=== PATIENT | female | born 1980 | race Hispanic/Latino ===

== ENCOUNTER 2018-08-21 08:39 | Observation (INO) | payer OTHER ==
[2018-08-16 09:46] LABS: Basophils % (Auto) 0.7 % (0.0-1.8); Eosinophils # (Auto) 0.1 K/mm3 (0.0-0.4); Eosinophils % (Auto) 1.5 % (0.0-4.3); Hematocrit 36.3 % (30.3-42.9); Hemoglobin 11.9 gm/dl (10.1-14.3); Lymphocytes # (Auto) 1.1 K/mm3 (1.2-5.4); Mean Corpuscular HGB Conc 33 % (30-34); Mean Corpuscular Volume 80 fl (79-97); Monocytes # (Auto) 0.5 K/mm3 (0.0-0.8); Monocytes % (Auto) 11.9 % (0.0-7.3); Red Blood Count 4.52 M/mm3 (3.65-5.03); Red Cell Distribution Width 13.9 % (13.2-15.2)
[2018-08-16 09:49] LABS: Platelet Count 227 K/mm3 (140-440)
[2018-08-16 11:18] LABS: BUN/Creatinine Ratio 20; Blood Urea Nitrogen 10 mg/dL (7-17); Calcium 9.2 mg/dL (8.4-10.2); Hemolysis Index 5
--- NOTE | 2018-08-16 11:26 | Anesthesia Consultation ---
Anesthesia Consult and Med Hx Date of service: 08/16/18 - Airway Anesthetic Teeth Evaluation: Good ROM Head & Neck: Adequate Mental/Hyoid Distance: Adequate Mallampati Class: Class II - Pulmonary Exam CTA: Yes - Cardiac Exam Cardiac Exam: RRR - Pre-Operative Health Status ASA Pre-Surgery Classification: ASA2 Proposed Anesthetic Plan: General - Pulmonary Hx Smoking: Yes (Former) - Central Nervous System Hx Psychiatric Problems: No - Hematic Hx Anemia: Yes - Other Systems Hx Cancer: Yes - Additional Comments Anesthesia Medical History Comments: 37 y.o.f. with newly diagnosed cerivcal cancer scheduled for robotic hysterecomy. No longer smokers. Prior obstetrics gyn surgery history and appendectomy - no problems with anesthesia. Discussed GETA +/- TAP block
[~2018-08-21 08:39] MED LIST: NEOSPORIN GU IR ONE; NEURONTIN PO NR; VERSED IV NR
[2018-08-21] MEDS ORDERED: ANCEF/STERILE WATER 2 GM/20 ML IV NR (09:15)
[2018-08-21] MEDS ORDERED: NEURONTIN PO NR (09:17)
--- NOTE | 2018-08-21 09:25 | History and Physical Report ---
History of Present Illness Date of examination: 08/21/18 Chief complaint: Squamous cell carcinoma of cervix History of present illness: Pt is a 37yo WF LMP 07/08/18 presents for surgical evaluation and treatment of squamous cell carcinoma of the cervix and endometrial biopsy shwed moderate to poorly diff. invasive carcinoma. She now presents for a Robotic Assisted Total Hysterectomy with ovarian conservation. Past History Past Medical History: other Past Surgical History: no surgical history [employer] History: abnormal PAP smear, cancer Social history: no significant social history, Medications and Allergies Allergies Allergy/AdvReac Type Severity Reaction Status Date / Time No Known Allergies Allergy Verified 08/16/18 12:45 Home Medications Medication Instructions Recorded Confirmed Last Taken Type Ferrous Sulfate [Iron] 325 mg PO TID 08/15/18 08/15/18 Unknown History Active Meds: Active Medications Cefazolin Sodium (Ancef/Sterile Water 2 Gm/20 Ml) 2 gm IV PREOP NR Stop: 08/21/18 23:59 Celecoxib (Celebrex) 200 mg PO PREOP NR Stop: 08/21/18 23:59 Fentanyl (Sublimaze) 50 mcg IV Q5MIN PRN PRN Reason: Pain , Severe (7-10) Gabapentin (Neurontin) 300 mg PO PREOP NR Stop: 08/21/18 23:59 Hydromorphone HCl (Dilaudid) 0.5 mg IV Q10MIN PRN PRN Reason: Pain , Severe (7-10) Review of Systems All systems: negative - Vital Signs Vital signs: Vital Signs Temp Pulse Resp BP Pulse Ox 98.4 F 64 18 97/59 99 08/15/18 10:20 08/15/18 10:20 08/15/18 10:20 08/15/18 10:20 08/15/18 10:20 Temp Pulse Resp BP Pulse Ox 98.4 F 64 18 97/59 99 08/15/18 10:20 08/15/18 10:20 08/15/18 10:20 08/15/18 10:20 08/15/18 10:20 - Physical Exam Breasts: Positive: deferred Cardiovascular: Regular rate Lungs: Positive: Clear to auscultation Abdomen: Positive: normal appearance Genitourinary (Female): Positive: normal external genitalia Cervix: Positive: lesion Uterus: Positive: normal size Extremities: Positive: normal Results Result Diagrams: 08/16/18 09:30 08/16/18 09:30 All other labs normal. Assessment and Plan - Patient Problems (1) Cervical carcinoma Onset Date: 08/21/18 Current Visit: Yes Status: Acute Plan to address problem: A: Squamous cell cervical carcinoma P: Admit for a Robotic Assisted Total Hysterectomy with Bilateral Salpingectomy
[2018-08-21] MEDS ORDERED: VERSED IV ONE (09:41)
[2018-08-21] MEDS ORDERED: MARCAINE-EPI 0.25%-1:200,000 INFILTRATI ONE (09:42)
[2018-08-21] MEDS ORDERED: LACTATED RINGERS 1,000 ML IV SCH (10:00)
[2018-08-21] MEDS ORDERED: ANCEF/STERILE WATER 2 GM/20 ML 2 GM/20 ML SYRINGE IV SCH (10:00)
[2018-08-21] MEDS: SUBLIMAZE IV PRN ×2 (10:13→10:18)
--- NOTE | 2018-08-21 11:05 | Anesthesia Day of Surgery ---
Anesthesia Day of Surgery - Day of Surgery Patient Examined: Yes Patient H&P Reviewed: Yes Patient is NPO: Yes
[2018-08-21] MEDS ORDERED: SUBLIMAZE ONE (11:22)
[2018-08-21] MEDS ORDERED: XYLOCAINE MPF 2% ONE (11:23)
[2018-08-21] MEDS ORDERED: ZEMURON IV ONE (11:23)
[2018-08-21] MEDS ORDERED: DIPRIVAN 10 MG/ML IV ONE (11:23)
[2018-08-21] MEDS ORDERED: DECADRON ONE (12:37)
[2018-08-21] MEDS ORDERED: NEOSPORIN GU IR ONE (12:45)
[2018-08-21] MEDS ORDERED: NACL 0.9% IR ONE ×2 (12:45)
--- NOTE | 2018-08-21 14:08 | Operative Report ---
Operative Report Operative Report: Date of procedure: 08/21/2018 Pre-operative diagnosis: Cervical carcinoma Post-operative diagnosis: Same Procedure name(s): 1. Robotic-assisted total hysterectomy 2. Bilateral salpingectomy Surgeon: Bethel Sanches MD Embedded Software Manager: Cassandra David CSA Anesthesia: RICHARD Block followed by general endotracheal intubation EBL: Less than 100 mL Findings: An 8-10 week size uterus with tubes showed evidence of previous tubal ligation bilaterally and normal ovaries bilaterally. Procedure: After the patient's first correctly identified she was prepped and draped in the usual sterile fashion and placed in the dorsolithotomy position. The bladder was first catheterized using Torres catheter and the speculum was placed in the vagina and the anterior lip of the cervix was grasped using a single-tooth tenaculum, and the medium Vesicare cup was placed. The tenaculum and speculum was then removed from the vagina and attention was then turned to the abdomen. The skin knife was used to make a small incision approximately 5 cm above the umbilicus through which a 12 mm trocar was placed under direct visualization. After adequate amount of abdominal insufflation visualization of the pelvic organs found the uterus to be enlarged and the tubes showed evidence of previous tubal ligation bilaterally and the ovaries are normal bilaterally. A right and left paramedian incision was made through which the 8 mm trochars were placed under direct visualization and a 5 mm trocar was placed in the right upper quadrant. The patient was then placed in steep Trendelenburg positioning and the robot was docked on the patient's left side. After all the robotic ports were connected and adequate functioning of the robotic arms were tested the surgeon then proceeded to the console to begin the hysterectomy. First the left round ligament was grasped, cauterized and cut, the left utero- ovarian ligaments were grasped, cauterized and cut, and the left fallopian tube also grasped, cauterized and cut along the mesosalpinx, thus freeing the left ovary from the left uterine sidewall. The same procedure was performed on the right. The right round ligament was grasped, cauterized and cut, the right utero-ovarian ligaments were grasped, cauterized and cut, and the right fallopian tube also grasped, cauterized and cut along the mesosalpinx, thus freeing the right ovary from the right uterine sidewall. The bladder flap was taken down anteriorly and the uterine vessels were grasped, cauterized and cut bilaterally. The cardinal ligaments were sequentially grasped, cauterized and cut down to the level of the uterosacral ligaments. At this time the posterior colpotomy was performed over the Vcare cup, and the cervix was circumscribed beginning posteriorly and meeting anteriorly until the cervix was freed. The cervix and uterus was then removed through the vagina and sent to pathology. The vaginal cuff was then closed using 2-0 Vloc suture in a running fashion. Irrigation was then performed and after good hemostasis was achieved the procedure was considered complete. The Tisseel sealant was then sprayed across the vaginal cuff site, and after excellent hemostasis was assured Interceed was placed across the vaginal cuff site. All instruments were then removed from the abdominal cavity. And each incision was closed using 0 Vicryl suture in a [id number] configuration on the fascia followed by 4-0 Monocryl suture in a subcuticular fashion on the skin. Each incision was also infiltrated using 0.5% Marcaine solution. The vaginal pack was removed. The patient tolerated the procedure well and was transported to the recovery room in stable condition.
[2018-08-21] MEDS: DILAUDID IV PRN ×2 (14:14→14:24)
[2018-08-21] MEDS ORDERED: MILK OF MAGNESIA PO PRN (17:10)
[2018-08-21] MEDS ORDERED: PHENERGAN PR PRN (17:10)
[2018-08-21] MEDS ORDERED: ZOFRAN IV PRN (17:10)
[2018-08-21] MEDS ORDERED: IBUPROFEN PO PRN (17:10)
--- NOTE | 2018-08-21 17:11 | Post Anesthesia Evaluation ---
- Post Anesthesia Evaluation Patient Participated: Yes Airway Patent: Yes Stable Respiratory Function: Yes Nausea/Vomiting: No Temp > 96.8F: Yes Pain Manageable: Yes Adequeate Hydration: Yes Anesthesia Complications: No Block Receding Appropriately: No Patient on Ventilator: No
[2018-08-21] MEDS: D5LR 1,000 ML IV SCH (17:30)
[2018-08-21] MEDS: TORADOL IV SCH ×2 (17:30→22:54)
[2018-08-21] MEDS: TYLENOL PO PRN (21:36)
[2018-08-21] MEDS: ANCEF/NS 1 GM/50 ML 1 GM/50 ML BAG IV SCH (22:54)
[2018-08-21] MEDS ORDERED: AMBIEN PO PRN (23:53)
[2018-08-22] MEDS: D5LR 1,000 ML IV SCH (00:45)
[2018-08-22] MEDS: ANCEF/NS 1 GM/50 ML 1 GM/50 ML BAG IV SCH (03:30)
[2018-08-22] MEDS: TORADOL IV SCH ×2 (06:00→11:07)
[2018-08-22] MEDS: TYLENOL PO PRN (09:19)
--- NOTE | 2018-08-22 09:42 | Progress Note ---
Assessment and Plan - Patient Problems (1) Cervical carcinoma Onset Date: 08/21/18 Current Visit: Yes Status: Resolved (2) S/P robot-assisted surgical procedure Onset Date: 08/22/18 Current Visit: Yes Status: Resolved Plan to address problem: A: S/P RATH - POD #1 Doing well P: May go home today. Subjective - Subjective Date of service: 08/22/18 Principal diagnosis: s/p RATH - POD #1 Interval history: Pt is feeling well without complaints. She is tolerating a liquid diet without nausea or vomiting, ambulating and voiding without difficulty. Patient reports: appetite normal, voiding normally, pain well controlled, flatus, ambulating normally, no dizzy ambulation, no nauseated Objective - Vital Signs Latest vital signs: Vital Signs Temp Pulse Resp BP BP Pulse Ox 08/22/18 08:18 98.7 F 82 18 106/65 97 08/22/18 03:57 79 98 08/22/18 00:00 98.6 F 81 18 111/71 97 08/21/18 23:44 76 98 08/21/18 20:01 81 98 08/21/18 20:00 98.4 F 84 18 126/77 97 08/21/18 17:13 98.9 F 82 20 115/70 99 08/21/18 15:25 98.7 F 74 18 123/81 100 08/21/18 15:00 71 12 109/71 100 08/21/18 14:45 79 12 105/69 100 08/21/18 14:30 97.0 F L 65 14 109/71 100 08/21/18 14:15 62 14 110/68 100 08/21/18 14:00 73 16 118/79 100 08/21/18 13:55 81 14 128/70 100 08/21/18 13:50 97.0 F L 80 14 121/80 100 08/21/18 11:45 62 12 100/64 100 08/21/18 11:30 60 12 96/62 100 08/21/18 11:15 59 L 11 L 100/66 100 08/21/18 11:10 66 11 L 106/60 100 08/21/18 11:05 67 13 107/63 100 08/21/18 11:00 64 11 L 109/64 100 08/21/18 10:55 67 13 100/66 100 08/21/18 10:50 61 11 L 100/64 100 08/21/18 10:45 61 11 L 98/66 99 08/21/18 10:40 63 12 100/62 99 08/21/18 10:35 76 12 96/66 99 08/21/18 10:30 66 11 L 91/56 98 08/21/18 10:25 73 8 L 95/49 98 08/21/18 10:20 71 9 L 102/66 98 08/21/18 10:15 73 13 106/63 100 08/21/18 10:10 65 13 108/67 99 Intake and Output 08/21/18 08/22/18 08/22/18 22:59 06:59 14:59 Intake Total 677.083 170 240 Output Total 600 700 Balance 677.083 -430 -460 Intake: IV 677.083 50 ANCEF/NS 1 GM/50 ML 1 gm 50 In 50 ml @ 100 mls/hr IV Q8H SWAPNA Rx#:[id number] D5lr 1,000 ml @ 125 mls/ 677.083 hr IV DIRECT SWAPNA Rx#: [id number] Oral 120 Intake, Free Water 240 Output: Urine 600 700 Indwelling Catheter 600 Void 700 Other: Total, Intake Amount 120 Total, Output Amount 600 700 Voiding Method Indwelling Catheter - Exam Abdomen: Present: normal appearance, soft, normal bowel sounds Extremities: Present: normal Incision: Present: normal, dry, intact
[2018-08-22] MEDS ORDERED: MYLICON PO PRN (10:00)
--- NOTE | 2018-08-22 10:36 | Discharge Summary ---
Providers - Providers Date of Admission: 08/21/18 13:46 Date of discharge: 08/22/18 Attending physician: NELLA MEJIAS Hospitalization Reason for admission: other (Cervical carcinoma) Procedure: other (Robotic Assisted Total Hysterectomy) Episiotomy: none Laceration: none Incision: normal, dry, intact Other procedures: none complications: none Discharge diagnosis: other (s/p RATH) Hospital course: Pt is a 37yo WF LMP 07/08/18 who presented for surgical evaluation and treatment of squamous cell carcinoma of the cervix and endometrial biopsy showed moderate to poorly diff. invasive carcinoma. She underwent an uncomplicated Robotic Assisted Total Hysterectomy with bilateral salpingectomy and tolerated the procedure well. By POD #1 she was tolerating a reg diet without nausea or vomiting, ambulating and voiding without difficulty, and therefore was discharged to home on POD #1 in stable condition. Condition at discharge: Good Disposition: DC-01 TO HOME OR SELFCARE - Discharge Diagnoses (1) Cervical carcinoma Status: Resolved Plan - Discharge Medications Prescriptions: Ibuprofen [Motrin 800 MG tab] 800 mg PO Q8H PRN #30 tablet PRN Reason: Pain, Mild (1-3) - Provider Discharge Summary Activity: routine, no sex for 6 weeks, no heavy lifting 4 weeks, no strenuous exercise Diet: routine Instructions: routine Additional instructions: [] Smoking cessation referral if applicable(refer to patient education folder for contact #) [] Refer to [facility] Booklet Call your doctor immediately for: * Fever > 100.5 * Heavy vaginal bleeding ( >1 pad per hour) * Severe persistent headache * Shortness of breath * Reddened, hot, painful area to leg or breast * Drainage or odor from incision. * Keep incision clean and dry at all times and follow doctor's instructions regarding bathing/showering - Follow up plan Follow up: ADRIANO WHALEN [Other] - 7 Days NELLA MEJIAS MD [Staff Physician] - 14 Days
[2018-08-22 11:41] LABS: Hematocrit 31.4 % (30.3-42.9); Hemoglobin 10.5 gm/dl (10.1-14.3)
[2018-08-22 12:38] VITALS: BP 107/69
== END 2018-08-22 13:40 | disposition home or self-care (01) ==
LOC: OR 08:39 → OB 13:46
PROVIDERS: ADMIT Obstetrics & Gynecology; ATTEND Obstetrics & Gynecology
DX: C76.0 Malignant neoplasm of head, face and neck (principal); Z98.890 Other specified postprocedural states; Z79.899 Other long term (current) drug therapy
CPT/HCPCS: 36415; 58571; 64450; 80048; 84703; 85014; 85018; 85025; 86850; 86900; 86901; 88307; 96365; 96366; 96375; 96376; A4217; C1765; C9250; G0378; J0690; J1100; J1170; J1885; J2250; J2704; J3010; J7120; J7121; S2900; 88309